=== PATIENT | male | born 1985 | race Caucasian/White ===

== ENCOUNTER 2017-04-29 12:21 | Inpatient (IN) | payer MEDICAID ==
[~2017-04-29] VITALS: Ht 180.3 cm; Wt 64.5 kg
[2017-04-29 12:57] LABS: ADD SCAN DIFF NO
[2017-04-29 12:59] LABS: BASOPHILS % 0.2 % (0.0-2.0); EOSINOPHILS % 0.6 % (0.0-7.0); HEMATOCRIT 41.7 % (42.0-52.0); HEMOGLOBIN 14.2 g/dl (14.0-18.0); LYMPHOCYTES # 1.5 10^3/ul (0.8-2.9); LYMPHOCYTES % 31.9 % (15.0-51.0); MEAN CORPUSCULAR HEMOGLOBIN 29.2 pg (29.0-33.0); MEAN CORPUSCULAR HGB CONC 34.1 g/dl (32.0-37.0); MEAN CORPUSCULAR VOLUME 85.6 fl (82.0-101.0); MEAN PLATELET VOLUME 10.5 fl (7.4-10.4); MONOCYTE # 0.4 10^3/ul (0.3-0.9); MONOCYTES % 7.9 % (0.0-11.0); NEUTROPHIL # 2.8 10^3/ul (1.6-7.5); NEUTROPHILS % 59.2 % (39.0-77.0); PLATELET COUNT 256 10^3/UL (140-415); RED BLOOD COUNT 4.87 10^6/ul (4.70-6.10); RED CELL DISTRIBUTION WIDTH 13.2 % (11.5-14.5); WHITE BLOOD COUNT 4.7 10^3/ul (4.8-10.8)
--- NOTE | 2017-04-29 13:02 | RADRPT ---
PROCEDURE: CT Brain without contrast. CLINICAL INDICATION: Possible Stroke TECHNIQUE: A CT of the brain was performed on a multidetector CT scanner utilizing axial imaging f rom the skull base through the vertex without IV contrast. Multiplanar reformatted images were made . Images were reviewed on a PACS workstation. The CTDIvol is 44 mGy and the DLP is 810 mGycm. COMPARISON: None FINDINGS: There is no intracranial hemorrhage, mass effect, or midline shift. No extra-axial fluid collection is seen. The ventricles and sulci are normal in size and configuration. The density of the brain is normal, and the nicole white matter differentiation appears well-preserved. The visualized paranasal sinuses and osseous structures are grossly unremarkable. IMPRESSION: 1. No evidence of acute intracranial pathology. 2. The brain is normal in appearance. .Isma Conroy MD, MD Date Time Electronically viewed and signed by .Isma Conroy MD, on 04/29/2017 13:01 .A/
[2017-04-29 13:12] VITALS: TEMP 98.5
[2017-04-29 14:13] LABS: INR 1.12; PROTIME 14.4 Sec (12.2-14.2); PT RATIO 1.1
[2017-04-29 14:14] LABS: PARTIAL THROMBOPLASTIN TIME 27.5 Sec (25.0-35.0)
[2017-04-29 14:15] LABS: ADD UMIC NO; UR ASCORBIC ACID NEGATIVE (NEGATIVE); UR BILIRUBIN (Dip) NEGATIVE (NEGATIVE); UR BLOOD (Dip) NEGATIVE (NEGATIVE); UR CLARITY CLEAR (CLEAR); UR COLOR YELLOW (YELLOW); UR GLUCOSE (Dip) NEGATIVE (NEGATIVE); UR KETONES (Dip) TRACE mg/dL (NEGATIVE); UR LEUKOCYTE ESTERASE (Dip) NEGATIVE Leu/ul (NEGATIVE); UR NITRITE (Dip) NEGATIVE (NEGATIVE); UR SPECIFIC GRAVITY (Dip) 1.009 (1.003-1.030); UR TOTAL PROTEIN (Dip) NEGATIVE (NEGATIVE); UR UROBILINOGEN (Dip) NEGATIVE (NEGATIVE)
[2017-04-29 14:16] LABS: ANION GAP 14 (8-16); BLOOD UREA NITROGEN 11 mg/dl (7-20); CALCIUM 9.8 mg/dl (8.4-10.2); CARBON DIOXIDE 21 mmol/L (21-31); CHLORIDE 103 mmol/L (97-110); CREATININE 0.99 mg/dl (0.61-1.24); GLUCOSE 120 mg/dl (70-220); POTASSIUM 3.8 mmol/L (3.5-5.1); SODIUM 134 mmol/L (135-144)
[2017-04-29 14:17] LABS: ACETAMINOPHEN < 10.0 ug/ml (10.0-30.0); ETHANOL < 10.0 mg/dl; SALICYLATE < 1.0 mg/dl (5.0-30.0)
[2017-04-29 14:28] LABS: TROPONIN-I < 0.012 ng/ml (0.00-0.12)
[2017-04-29 14:29] LABS: BARBITURATES Negative (NEGATIVE); BENZODIAZEPINES Negative (NEGATIVE); CANNABINOIDS Positive (NEGATIVE); COCAINE Negative (NEGATIVE); OPIATES Negative (NEGATIVE)
[2017-04-29] MEDS ORDERED: ACETAMINOPHEN 325 MG TAB PO PRN (14:30)
[2017-04-29] MEDS ORDERED: ONDANSETRON 4 MG INJ IV PRN (14:30)
--- NOTE | 2017-04-29 14:43 | RADRPT ---
PROCEDURE: XR Chest AP portable CLINICAL INDICATION: Possible stroke TECHNIQUE: An AP portable radiograph of the chest was submitted. COMPARISON: None. FINDINGS: Support Hardware: None Cardiovascular: The cardiovascular silhouette appears unremarkable. Lung Noble: The lung noble appear clear with no nodule, alveolar infiltrate, or interstitial promi nence evident. Pleural Spaces: No pneumothorax or pleural effusion is identified. Osseous Structures: The osseous structures appear intact. Soft Tissues: The soft tissues appear unremarkable. IMPRESSION: Unremarkable portable chest. Physician Nam Date Time Electronically viewed and signed by Lyle Miranda Physician on 04/29/2017 14:43 RH/
--- NOTE | 2017-04-29 15:50 | ERA ---
ER Documentation Chief Complaint Date/Time DATE: 04/29/17 TIME: 15:46 Chief Complaint FOUND ALOC WHILE AT WORK. EMS ARRIVED. NO NEURO DEF. BS 129. A &O X 3 HPI Patient is a 31-year-old male with no medical problems who presents with altered mental status. The patient worked all night and then went to a graduation ceremony today. He says "I did not feel good". He felt like he would pass out. He was sweating profusely per his girlfriend who is here with him. She says that he is repeating things over and over and he says "I cannot move my legs". This started at 12 PM. Upon review of old medical records this is the patient's first visit to the emergency department. He does not currently have a primary doctor. He denies drugs. ROS All systems reviewed and are negative except as per history of present illness. Medications Home Meds No Active Prescriptions or Reported Meds Allergies Allergies: Coded Allergies: aspirin (Verified Allergy, Severe, 04/29/17) PMhx/Soc Medical and Surgical Hx: pt denies Medical Hx, pt denies Surgical Hx Hx Alcohol Use: No Hx Substance Use: Yes (MJ) Hx Tobacco Use: No Smoking Status: Unknown if ever smoked FmHx Family History: No diabetes Physical Exam Vitals Vital Signs Date Time Temp Pulse Resp B/P Pulse Ox O2 Delivery O2 Flow Rate FiO2 04/29/17 13:12 98.5 66 18 132/85 99 Room Air 04/29/17 12:31 98.6 67 20 129/70 98 Physical Exam Const: Moderate distress Head: Atraumatic Eyes: Patient has a disconjugate gaze but the girlfriend says this is his normal ENT: Normal External Ears, Nose and Mouth. Mild left-sided facial droop Neck: Full range of motion..~ No meningismus. Resp: Clear to auscultation bilaterally Cardio: Regular rate and rhythm, no murmurs Abd: Soft, non tender, non distended. Normal bowel sounds Skin: No petechiae or rashes Back: No midline or flank tenderness Ext: Patient is unable to move his lower extremities other than flexing his feet back and forth, he cannot lift them off the ground Neur: Awake but repetitively saying "I do to get out of here". The patient is unable to lift his legs to gravity bilaterally, he does have bilateral clinical rehabilitation aide strength which is equal, he is able to hold both arms up to gravity, no slurred speech Result Diagram: 04/29/17 1325 04/29/17 1325 Results 24 hrs Laboratory Tests Test 04/29/17 12:45 04/29/17 13:25 04/29/17 14:00 Hemoglobin A1c 5.7% White Blood Count 4.710^3/ul Red Blood Count 4.8710^6/ul Hemoglobin 14.2g/dl Hematocrit 41.7% Mean Corpuscular Volume 85.6fl Mean Corpuscular Hemoglobin 29.2pg Mean Corpuscular Hemoglobin Concent 34.1g/dl Red Cell Distribution Width 13.2% Platelet Count 67301^3/UL Mean Platelet Volume 10.5fl Neutrophils % 59.2% Lymphocytes % 31.9% Monocytes % 7.9% Eosinophils % 0.6% Basophils % 0.2% Nucleated Red Blood Cells % 0.0/100WBC Neutrophils # 2.810^3/ul Lymphocytes # 1.510^3/ul Monocytes # 0.410^3/ul Eosinophils # 0.010^3/ul Basophils # 0.010^3/ul Nucleated Red Blood Cells # 0.010^3/ul Prothrombin Time 14.4Sec Prothrombin Time Ratio 1.1 INR International Normalized Ratio 1.12 Activated Partial Thromboplast Time 27.5Sec Sodium Level 134mmol/L Potassium Level 3.8mmol/L Chloride Level 103mmol/L Carbon Dioxide Level 21mmol/L Anion Gap 14 Blood Urea Nitrogen 11mg/dl Creatinine 0.99mg/dl Glucose Level 120mg/dl Calcium Level 9.8mg/dl Troponin I < 0.012ng/ml Salicylates Level < 1.0mg/dl Acetaminophen Level < 10.0ug/ml Ethyl Alcohol Level < 10.0mg/dl Urine Color YELLOW Urine Clarity CLEAR Urine pH 8.0 Urine Specific [place] 1.009 Urine Ketones TRACEmg/dL Urine Nitrite NEGATIVEmg/dL Urine Bilirubin NEGATIVEmg/dL Urine Urobilinogen NEGATIVEmg/dL Urine Leukocyte Esterase NEGATIVELeu/ul Urine Hemoglobin NEGATIVEmg/dL Urine Glucose NEGATIVEmg/dL Urine Total Protein NEGATIVEmg/dl Urine Opiates Screen Negative Urine Barbiturates Negative Urine Amphetamines Screen Negative Urine Benzodiazepines Screen Negative Urine Cocaine Screen Negative Urine Cannabinoids Positive Current Medications Medications (Trade) Dose Ordered Sig/Yves Route PRN Reason Start Time Stop Time Status Last Admin Dose Admin Ondansetron HCl (Zofran Inj) 4 mg BRIDGE ORDER PRN IV NAUSEA AND/OR VOMITING 04/29/17 14:30 04/30/17 14:29 Acetaminophen (Tylenol Tab) 650 mg ER BRIDGE PRN PO MILD PAIN/FEVER 04/29/17 14:30 04/30/17 14:29 Procedures/MDM EKG read by me: Rate/Rhythm: Regular rate and rhythm at a normal rate Intervals: Normal Impression: No evidence of ischemia or arrhythmia CT brain negative per radiology. Chest x-ray negative per radiology. MRI of the brain, cervical spine, thoracic spine, lumbar spine pending at this time. Patient is a 31-year-old male presents with confusion and lower extremity weakness bilaterally. A code stroke was called immediately after I evaluated the patient at 12:[address] Romano from neurology was paged at 2195 and I spoke with him at 1250. He recommended no TPA at this time as the presentation did not seem consistent with a focal ischemic stroke. CT brain was negative for brain mass or intracranial hemorrhage. The patient has normal CBC and electrolytes. Urine drug screen was positive for cannabinoids. There is no obvious signs of serious bacterial infection. I am concerned about possible Guillain-Perez syndrome given the bilateral lower extremity weakness. There is also a possibility of epidural abscess or hematoma and therefore MRI of the spine is pending. MRI of the brain was also ordered to further evaluate for stroke. Patient had an NIH stroke scale and bedside swallow evaluation performed. He is allergic to aspirin however and is unable to take aspirin. Departure Diagnosis: Primary Impression: Lower extremity weakness Qualified Code: R29.898 - Weakness of both lower extremities Additional Impressions: Altered level of consciousness Near syncope Condition: Serious SANDRA MCNULTY MD Apr 29, 2017 15:50
[2017-04-29 16:00] VITALS: BP 129/76; PULSE 59; RESP 16
[2017-04-29 17:39] VITALS: Ht 180.3 cm; Wt 64.5 kg
--- NOTE | 2017-04-29 17:50 | RADRPT ---
PROCEDURE: MR Brain without contrast. CLINICAL INDICATION: Neurologic deficit TECHNIQUE: An MRI of the brain was performed on a high field scanner utilizing the following seque nces: Sagittal T1 weighted, axial T2 weighted, axial FLAIR, coronal GRE, axial diffusion weighted i mages with ADC map. The images were reviewed on a high-resolution PACS workstation. COMPARISON: CT brain from 04/29/2017 FINDINGS: MRI BRAIN: There is no intracranial hemorrhage, mass effect, or midline shift. No extra-axial fluid collection is seen. The ventricles and sulci are normal in size and configuration. The nicole-white matter dif ferentiation is maintained. The signal intensity is normal throughout the cerebrum, brain stem and cerebellum. The sella and parasella structures are unremarkable. Normal flow voids are visible the proximal intracranial arteries and dural sinuses, indicating patency. The sella and parasella struc tures are unremarkable. The visualized paranasal sinuses, mastoid air cells, orbits, and calvarium are unremarkable. IMPRESSION: Unremarkable noncontrast MRI of the brain. RPTAT: HPNM Physician Xavi Date Time Electronically viewed and signed by Physician Xavi on 04/29/2017 17:49 /
--- NOTE | 2017-04-29 17:52 | RADRPT ---
PROCEDURE: MR Cervical Spine. CLINICAL INDICATION: Neck pain. Bilateral lower extremity paralysis TECHNIQUE: An MRI of the cervical spine was performed on a high-definition scanner utilizing the f ollowing sequences: Sagittal T1 weighted, sagittal T2 weighted, sagittal T2 with fat saturation. Th e patient refused further scanning. COMPARISON: No prior studies are available for comparison. FINDINGS: The exam is limited secondary to the limited number of sequences as well as motion artifact. The ce rvical lordosis is maintained. There is maintenance of the normal vertebral body heights. The marro w signal throughout the visualized cervical spine is homogeneous without focal abnormality. The cran iocervical and cervical medullary junctions are unremarkable. The cervical cord is normal in caliber and signal intensity. The paravertebral soft tissues are unremarkable. The disk space heights appea r to be unremarkable. No significant disk bulge or protrusion is seen. IMPRESSION: 1. Limited examination secondary to the limited number of sequences as well as motion artifact. 2. Otherwise, no definite MRI evidence of acute pathology in the cervical spine. RPTAT: HPNM Physician Xavi Date Time Electronically viewed and signed by Physician Xavi on 04/29/2017 17:52 /
--- NOTE | 2017-04-29 17:55 | RADRPT ---
PROCEDURE: MR Thoracic Spine. CLINICAL INDICATION: Back pain. Bilateral lower extremity paralysis TECHNIQUE: An MRI of the thoracic spine was performed on a high field scanner utilizing the follow ing sequences: Sagittal T2 weighted, sagittal T1 weighted and sagittal T2 with fat saturation. The patient refused further imaging. The images were reviewed on a high-resolution PACS workstation. COMPARISON: No prior studies are available for comparison. FINDINGS: Exam is limited secondary to the limited number of sequences. The thoracic kyphosis is maintained. The vertebral body and disk space heights are normal. The marrow signal intensity is grossly unrem arkable. No acute fracture or subluxation is seen. The thoracic spinal cord is normal in size and signal intensity. No central canal or neural foraminal narrowing is seen. No paravertebral fluid c ollection or mass is seen. IMPRESSION: 1. Limited examination secondary to the limited number of sequences. 2. Otherwise, no definite MRI evidence of acute pathology in the thoracic spine. RPTAT: HPNM Physician Xavi Date Time Electronically viewed and signed by Physician Xavi on 04/29/2017 17:54 /
--- NOTE | 2017-04-29 17:58 | RADRPT ---
PROCEDURE: MR Lumbar Spine without contrast. CLINICAL INDICATION: Bilateral lower extremity paralysis TECHNIQUE: An MRI of the lumbar spine was performed utilizing the following sequences: Sagittal T1 -weighted, sagittal T2-weighted FRFSE fat saturation and sagittal T1 FLAIR. Only the sagittal seque nces are completed as the patient reportedly declined additional imaging at this time COMPARISON: None. FINDINGS: Vertebral bodies: Signal intensity and stature are preserved at every level. The lordosis is intact . Conus medularis region: Normal in signal intensity and location terminating at the L1 level. The ca uda equina is unremarkable. T12-L1: No discogenic abnormality of significance is seen. There is no facet arthropathy. The centr al canal is patent. There is no evidence for foraminal stenosis. L1-L2: No discogenic abnormality of significance is seen. There is no facet arthropathy. The ligamen laxmi flava are normal in thickness. The central canal is patent. There is no evidence for foraminal stenosis. L2-L3: No discogenic abnormality of significance is seen. There is no facet arthropathy. There is s uggestion of a small right synovial cyst related to the facet joint external to the spinal canal and estimated 7 mm best seen on sagittal image 9.. The ligamentum flava are normal in thickness. The c entral canal is patent. There is no evidence for foraminal stenosis. L3-L4:No discogenic abnormality of significance is seen. There is no facet arthropathy. The ligament um flava are normal in thickness. The central canal is patent. There is no evidence for foraminal stenosis. L4-L5: No discogenic abnormality of significance is seen. There is no facet arthropathy. The ligamen laxmi flava are normal in thickness. The central canal is patent. There is no evidence for foraminal stenosis. L5-S1: No discogenic abnormality of significance is seen. There is no facet arthropathy. The ligamen laxmi flava are normal in thickness. The central canal is patent. There is no evidence for foraminal stenosis. Sacrum and sacroiliac joints: No abnormalities are identified, the joints are normal and symmetric. None spine related findings: No abnormalities are demonstrated. RPTAT:HJJR IMPRESSION: 1. Unremarkable sagittal sequences only MRI of the lumbar spine without findings to explain the prov ided history. 2. Equivocal small extra spinal synovial cyst arising from the right L2-3 facet joint. Ambrose Combs Physician Date Time Electronically viewed and signed by Ambrose Combs Physician on 04/29/2017 17:57 JR/
[2017-04-29] MEDS ORDERED: LORAZEPAM 2 MG INJ IV PRN (19:30)
[2017-04-29] MEDS ORDERED: ALBUTEROL/IPRATROPIUM (NEB) 3 ML AMP HHN PRN (19:30)
[2017-04-29] MEDS ORDERED: morphine 2 MG INJ IV PRN (19:30)
[2017-04-29] MEDS ORDERED: NACL 0.9% 3 ML SYG IV SCH (19:30)
[2017-04-29 20:29] VITALS: BP 132/80; RESP 18
[2017-04-29] MEDS: ACETAMINOPHEN 325 MG TAB PO PRN (21:35)
--- NOTE | 2017-04-29 22:06 | HP ---
Date/Time of Note Date/Time of Note DATE: 04/29/17 TIME: 21:44 Assessment/Plan VTE Prophylaxis VTE Prophylaxis Intervention: LMWH Lines/Catheters IV [facility]ter [facility] (from [facility] Saline Lock Assessment/Plan Assessment/Plan IMPRESSION 1. Generalized weakness and Altered Mentation 2. Migraine Headache 3. Mild Hyponatremia 4. Marijuana use PLAN - I believe symptoms were related to Migraine headache. no suspicion for stroke.Multiple imaging were done including Brain CT/MRI, Cervical/Thoracic/ Lumbar CT and CXR are all unremarkable except Equivocal small extra spinal synovial cyst arising from the right L2-3 facet joint. - Will monitor overnight and most likely will discharge tomorrow. - Will correct electrolytes as needed - Imitrex PRN headache. HPI/ROS Admit Date/Time Admit Date/Time Apr 29, 2017 at 14:30 Hx of Present Illness This is a 31 yo male with hx of Migraine headache who presented to ER c/o generalized weakness, lethargy and headache. He said he was at his son graduation when he became diaphoretic and headache. He then felt so lethargic that he couldn't get up from a seated position. His who is at bedside said he was altered and wasn't communicating appropriately. Denied focal weakness, facial droop, double/blurry vision, chest pain, fever/chills or seizure like activity. Headache was diffuse and similar to his previous migraine, which has been occurring with increased frequency lately. His migraine headache is usually debilitating, sometimes lasting days. Currently all symptoms have resolved completely and he is feeling well. He smokes marijuana regularly, last use last night In ER, vitals were stable. Basic labs are WNL except a mildly decreased Na of 134 and WBC of 4.7. Multiple imaging were done including Brain CT/MRI, Cervical/ Thoracic/Lumbar CT and CXR are all unremarkable except Equivocal small extra spinal synovial cyst arising from the right L2-3 facet joint. Utox was positive for marijuana. . 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, nl mental status, nl speech, nl strength Labs Result Diagram: 04/29/17 1325 04/29/17 1325 Medications Medications Current Medications Lorazepam (Ativan) 0.5 mg Q6H PRN IV ANXIETY; Start 04/29/17 at 19:30 Aspirin (Aspirin) 81 mg DAILY PO ; Start 04/30/17 at 09:00 Acetaminophen (Tylenol Tab) 650 mg Q6H PRN PO PAIN LEVEL 1-3 OR FEVER Last administered on 04/29/17t 21:35; Admin Dose 650 MG; Start 04/29/17 at 19:30 Morphine Sulfate (morphine) 2 mg Q4H PRN IV PAIN LEVEL 7-10; Start 04/29/17 at 19:30 Enoxaparin Sodium (Lovenox) 40 mg DAILY SC ; Start 04/30/17 at 09:00 Ibuprofen (Motrin) 600 mg Q6 PO ; Start 04/30/17 at 00:00; Status CLARE DARDEN MD Apr 29, 2017 22:05
[2017-04-29] MEDS ORDERED: IBUPROFEN 600 MG TAB PO PRN (23:00)
[2017-04-30] MEDS ORDERED: IBUPROFEN 600 MG TAB PO SCH
[2017-04-30 05:41] LABS: ADD SCAN DIFF NO
[2017-04-30 05:50] LABS: BASOPHILS % 0.2 % (0.0-2.0); EOSINOPHILS # 0.1 10^3/ul (0.0-0.5); EOSINOPHILS % 1.5 % (0.0-7.0); HEMATOCRIT 41.5 % (42.0-52.0); HEMOGLOBIN 13.8 g/dl (14.0-18.0); LYMPHOCYTES # 2.1 10^3/ul (0.8-2.9); LYMPHOCYTES % 37.9 % (15.0-51.0); MEAN CORPUSCULAR HEMOGLOBIN 28.9 pg (29.0-33.0); MEAN CORPUSCULAR HGB CONC 33.3 g/dl (32.0-37.0); MEAN CORPUSCULAR VOLUME 86.8 fl (82.0-101.0); MEAN PLATELET VOLUME 10.6 fl (7.4-10.4); MONOCYTE # 0.7 10^3/ul (0.3-0.9); MONOCYTES % 13.6 % (0.0-11.0); NEUTROPHIL # 2.5 10^3/ul (1.6-7.5); NEUTROPHILS % 46.6 % (39.0-77.0); PLATELET COUNT 238 10^3/UL (140-415); RED BLOOD COUNT 4.78 10^6/ul (4.70-6.10); RED CELL DISTRIBUTION WIDTH 13.2 % (11.5-14.5); WHITE BLOOD COUNT 5.4 10^3/ul (4.8-10.8)
[2017-04-30 06:22] LABS: ALBUMIN 4.8 g/dl (3.3-4.9); ALBUMIN/GLOBULIN RATIO 1.71; BILIRUBIN,INDIRECT 0.5 mg/dl (0-1.1); BILIRUBIN,TOTAL 0.5 mg/dl (0.2-1.3); CHOL/HDL RATIO 2.9 RATIO; CREATININE 0.99 mg/dl (0.61-1.24); MAGNESIUM 2.1 mg/dl (1.7-2.5); POTASSIUM 4.1 mmol/L (3.5-5.1); TOTAL PROTEIN 7.6 g/dl (6.1-8.1)
[2017-04-30] MEDS: ACETAMINOPHEN 325 MG TAB PO PRN (06:26)
[2017-04-30 06:52] LABS: THYROID STIMULATING HORMONE 0.623 MIU/L (0.465-4.680)
[2017-04-30] MEDS ORDERED: SUMATRIPTAN 6 MG/0.5 ML INJ SC ONE (08:30)
[2017-04-30] MEDS ORDERED: ASPIRIN 81 MG TAB PO SCH (09:00)
[2017-04-30] MEDS ORDERED: ENOXAPARIN 40 MG/0.4 ML SYG SC SCH (09:00)
[2017-04-30] MEDS ORDERED: SUMATRIPTAN 6 MG/0.5 ML INJ SC PRN (09:30)
[2017-04-30] MEDS ORDERED: SUMA50TA3 PO (12:41)
--- NOTE | 2017-04-30 12:43 | PDOCDIS ---
Discharge Instructions CONDITION Patient Condition: Stable HOME CARE INSTRUCTIONS: Diet Instructions: Regular ACTIVITY: Activity Restrictions: Slowly Increase Activity Rest between Activity Avoid heavy lifting Bathing Restrictions: Shower FOLLOW UP/APPOINTMENTS Follow-up Plan follow-up with primary care Doctor OTHER ORDERS: Other Orders: call 911 and go to the nearest ER if you develop severe headache, chest pain, fainted CLARE CAMPBELL MD Apr 30, 2017 12:43
--- NOTE | 2017-04-30 15:54 | RADRPT ---
Echocardiogram Report Patient Name: LAMBERT POMPA Gender: Male Date: 1985 Study Date: 30-Apr-2017 Vocational Case Manager: PHAN Location: I Ref. Physician: CLARE CAMPBELL Quality: Adequate Procedures: Transthoracic echocardiogram with complete 2D, M-Mode, and doppler examination. Indications: Extremity weakness, migraine. 2D/M Mode Doppler Measurement Value Normal Ranges Measurement Value Normal Ranges AoR Diam MM 3.5 cm AV Peak Doug 0.9 m/sec ACS MM 2.4 cm AV Peak PG 3.5 mmHg LVIDd 2D 4.3 3.5 - 5.6 cm LVOT Peak Doug 0.8 m/sec LVIDs 2D 3.0 2.1 - 4.1 cm LVOT Peak PG 2.7 mmHg LVPWd 2D 0.9 0.6 - 1.1 cm MV E Peak Doug 0.7 m/sec IVSd 2D 1.2 0.6 - 1.1 cm MV A Peak Doug 0.2 m/sec EDV 2D 84.6 cm3 MV E/A 2.9 ESV 2D 26.1 cm3 MV Decel Time 126 msec LA Dimen 2D 3.1 2.3 - 4.0 cm MV Decel [place] 5 MV E/A 2.9 PV Peak Doug 0.8 m/sec PV Peak PG 2.0 mmHg Findings Left Ventricle: Normal left ventricular systolic function. Normal left ventricular cavity size. Mild hypertrophy of the basal septum. Ejection fraction is visually estimated at 60 %. Tissue Doppler/Mitral Doppler indices are within normal limits. E/E`=4. Right Ventricle: Normal right ventricular size. Normal right ventricular systolic function. Left Atrium: The left atrium is normal in size. Right Atrium: The right atrium is normal in size. Atrial Septum: Normal atrial septum. Mitral Valve: Normal appearance and function of the mitral valve with trace physiologic regurgitation. Aortic Valve: No significant aortic stenosis or insufficiency. Normal trileaflet aortic valve structure. Tricuspid Valve: Normal appearance and function of the tricuspid valve with trace physiologic regurgitation. Pulmonic Valve: Normal pulmonic valve appearance. There is trace pulmonic regurgitation. Pericardium: Normal pericardium with no significant pericardial effusion. No pleural effusion noted. Aorta: Normal aortic root. IVC: Normal size and normal respiratory collapse consistent with normal right atrial pressure. Pulmonary Artery: Normal pulmonary artery size. Conclusions 1.Normal left ventricular systolic function. Normal left ventricular cavity size. Mild hypertrophy of the basal septum. Ejection fraction is visually estimated at 60 %. Tissue Doppler/Mitral Doppler indices are within normal limits. E/E`=4. 2.Normal appearance and function of the mitral valve with trace physiologic regurgitation. 3.No significant aortic stenosis or insufficiency. Normal trileaflet aortic valve structure. 4.Normal appearance and function of the tricuspid valve with trace physiologic regurgitation. Electronically Signed By: Schuyler Palacios 30-Apr-2017 15:54:03 -0700 Patient Name: LAMBERT POMPA Study Date: 30-Apr-2017 [id number]
[2017-04-30] MEDS ORDERED: LORAZEPAM 0.5 MG TAB PO PRN (16:30)
== END 2017-04-30 14:45 | disposition home or self-care (01) | DRG 103 ==
LOC: E/R 12:21 → MS1 14:30
PROVIDERS: ADMIT Hospitalist; ATTEND Hospitalist
DX: G43.909 Migraine, unspecified, not intractable, without status migrainosus (principal); E87.1 Hypo-osmolality and hyponatremia; R41.82 Altered mental status, unspecified; R29.898 Other symptoms and signs involving the musculoskeletal system; R55 Syncope and collapse; F12.90 Cannabis use, unspecified, uncomplicated
CPT/HCPCS: 36415; 70450; 70553; 71010; 72156; 72157; 72158; 80048; 80053; 80061; 80306; 80307; 81003; 83036; 83735; 84100; 84443; 84484; 85025; 85610; 85730; 93005; 93306; J1650; J2270; J3030